=== PATIENT | male | born 1935 | race Caucasian/White ===

== ENCOUNTER → 2016-04-16 | Outpatient (CLI) | payer MEDICARE, BC | END | disposition home or self-care (01) | LOC: PCVCIMAG 12:47 | PROVIDERS: ATTEND Internal Medicine Cardiovascular Disease | DX: E78.5 Hyperlipidemia, unspecified (principal); I25.10 Atherosclerotic heart disease of native coronary artery without angina pectoris; I10 Essential (primary) hypertension; I35.0 Nonrheumatic aortic (valve) stenosis; I65.29 Occlusion and stenosis of unspecified carotid artery; Z95.1 Presence of aortocoronary bypass graft | CPT/HCPCS: 80061; 93005; 93306; G0463 ==

== ENCOUNTER → 2016-10-01 | Outpatient (CLI) | payer MEDICARE, BC ==
--- NOTE | 2016-10-01 15:41 | PCVCIMAG ---
APPROVED REPORT Exam: Stress Echocardiogram Indication: CAD s/p CABG, Aortic Valve Stenosis Stress Nurse: Faye Vela RN Status: routine HR: 65 bpm Rhythm: NSR Medical History Medical History: CAD s/p CABG, Aortic Stenosis Procedure The patient underwent an Exercise Stress Test using the Mckay Protocol. Blood pressure, heart rate, and EKG were monitored. An Echocardiogram was performed by auto body technician in four stages in quad fashion. At peak stress, four selected images were obtained and placed side by side with resting images for comparison. Stress Test Details Stress Test: Exercise stress testing was performed using a Mckay protocol. HR Resting HR: 65 bpmMax Heart Rate (APMHR): 139 bpm Max HR Achieved: 108 bpmTarget HR (85% APMHR): 118 bpm % of APMHR: 77 Recovery HR: 76 bpm HR response to stress: Normal HR response to stress BP Resting BP: 118/60 mmHg Max BP: 148/76 mmHg Recovery BP: 136/62 mmHg ECG Resting ECG: Sinus Rhythm w/ frequent PVCs Stress ECG: Sinus Rhythm w/ frequent PVCs ST Change: Normal Arrhythmia: Sinus Rhythm w/ frequent PVCs Recovery ECG: Sinus Rhythm w/ frequent PVCs Recovery Arrhythmia: Sinus Rhythm w/ frequent PVCs Clinical Reason for Termination: Maximal effort Stress Symptoms: none Exercise duration: 9 min 13 sec Highest Stage Achieved: Stage 4: 4.2 mph at 16% grade. Exercise capacity: 10.7 METs Overall Exercise Capacity for Age: Good Pre-Stress Echo The resting Echocardiogram showed normal left ventricular contractility with an estimated Ejection Fraction of about >55%. Normal wall motion in all segments on baseline images. Post-Stress Echo The stress Echocardiogram showed normal left ventricular contractility with an estimated Ejection Fraction of about 60-65%. Normal augmentation of wall motion in all segments on post stress images. Clinical No clinical or ECG evidence for ischemia. Conclusion Clinical Response: Non-ischemic Exercise Capacity: Average Stress ECG Response: Non-ischemic Stress Echo Images: Non-ischemic Moderate-severe aortic stenosis- GIANNA 0.9 cm2, Mean gradient 33 mmHg and peak velocity 3.8 m/s. Aortic stenosis has not worsened. Heart rate was slightly submaximal (77%)- somewhat diminished accuracy due to inability to reach target heart rate. Other Information Study Quality: Adequate <Conclusion> Moderate-severe aortic stenosis- GIANNA 0.9 cm2, Mean gradient 33 mmHg and peak velocity 3.8 m/s. Aortic stenosis has not worsened. Heart rate was slightly submaximal (77%)- somewhat diminished accuracy due to inability to reach target heart rate.
== END | disposition home or self-care (01) ==
LOC: PCVCIMAG 10:57
PROVIDERS: ATTEND Internal Medicine Cardiovascular Disease
DX: I35.0 Nonrheumatic aortic (valve) stenosis (principal); I49.3 Ventricular premature depolarization; I25.10 Atherosclerotic heart disease of native coronary artery without angina pectoris; I10 Essential (primary) hypertension; Z95.1 Presence of aortocoronary bypass graft
CPT/HCPCS: 93325; 93351

== ENCOUNTER → 2017-06-10 | Outpatient (CLI) | payer MEDICARE, BC | END | disposition home or self-care (01) | LOC: PCVCCLINIC 10:10 | DX: I25.10 Atherosclerotic heart disease of native coronary artery without angina pectoris (principal); I10 Essential (primary) hypertension; I35.0 Nonrheumatic aortic (valve) stenosis; E78.2 Mixed hyperlipidemia; I77.9 Disorder of arteries and arterioles, unspecified; R68.84 Jaw pain; R94.31 Abnormal electrocardiogram [ECG] [EKG]; Z95.1 Presence of aortocoronary bypass graft; Z87.891 Personal history of nicotine dependence; Z79.899 Other long term (current) drug therapy; Z79.82 Long term (current) use of aspirin | CPT/HCPCS: 80061; 93005; G0463 ==

== ENCOUNTER → 2017-07-02 | Outpatient (CLI) | payer MEDICARE, BC ==
[~2017-07-02] MED LIST: BENZOCAINE ONE 20% MUCOSAL SPRAY.; IOHEXOL 350 MG/ML 50 ML VIAL.; IV NORMAL SALINE 1000ML BAG 1,000 ML; LIDOCAINE 1% Multi-Dose 20 ML VIAL.; MIDAZOLAM HCL/PF 2 MG/2 ML VIAL.; NALOXONE 0.4 MG/ML VIAL.; fentaNYL PF VIAL 100 MCG/2 ML VIAL
== END | disposition home or self-care (01) ==
LOC: PCVCINTER 07:21
DX: I25.10 Atherosclerotic heart disease of native coronary artery without angina pectoris (principal); I70.0 Atherosclerosis of aorta; Z95.1 Presence of aortocoronary bypass graft; Z98.890 Other specified postprocedural states; I08.0 Rheumatic disorders of both mitral and aortic valves
CPT/HCPCS: 75625; 93312; 93325; 93351; 93461; 93567; 99152; 99153; C1751; C1760; C1769; C1894; J1644; J2250; J2310; J3010; J7030; Q9967

== ENCOUNTER → 2017-08-29 | Outpatient (CLI) | payer MEDICARE, BC | END | disposition home or self-care (01) | LOC: PCVCCLINIC 14:30 | DX: I25.10 Atherosclerotic heart disease of native coronary artery without angina pectoris (principal); I10 Essential (primary) hypertension; I77.9 Disorder of arteries and arterioles, unspecified; I35.0 Nonrheumatic aortic (valve) stenosis; Z95.1 Presence of aortocoronary bypass graft | CPT/HCPCS: 93005; G0463 ==

== ENCOUNTER → 2017-12-24 | Outpatient (CLI) | payer MEDICARE, BC | END | disposition home or self-care (01) | LOC: PCVCCLINIC 15:31 | PROVIDERS: ATTEND Internal Medicine Cardiovascular Disease | DX: I25.810 Atherosclerosis of coronary artery bypass graft(s) without angina pectoris (principal); I10 Essential (primary) hypertension; I35.0 Nonrheumatic aortic (valve) stenosis; E78.00 Pure hypercholesterolemia, unspecified; Z79.82 Long term (current) use of aspirin; Z87.891 Personal history of nicotine dependence | CPT/HCPCS: 80061; 93005; G0463 ==

== ENCOUNTER → 2018-06-23 | Outpatient (CLI) | payer MEDICARE, BC ==
--- NOTE | 2018-06-23 13:34 | PCVCIMAG ---
APPROVED REPORT Study performed: 06/23/2018 09:51:42 Exam: Stress Echocardiogram Indication: CAD s/p PCI, severe aortic stenosis, htn, hx cabg, jaw pain Patient Location: Echo lab Stress Nurse: Aidee Baez RN Status: routine Ht: 5 ft 7 in HR: 74 bpm BP: 136/70 mmHg Rhythm: NSR Procedure The patient underwent an Exercise Stress Test using the Mckay Protocol. Blood pressure, heart rate, and EKG were monitored. An Echocardiogram was performed by composite technician in four stages in quad fashion. At peak stress, four selected images were obtained and placed side by side with resting images for comparison. Stress Test Details Stress Test: Exercise stress testing was performed using a Mckay protocol. HR Resting HR: 74 bpmMax Heart Rate (APMHR): 137 bpm Max HR Achieved: 114 bpmTarget HR (85% APMHR): 116 bpm % of APMHR: 83 Recovery HR: 90 bpm HR response to stress: Normal HR response to stress BP Resting BP: 136/70 mmHg Max BP: 140/70 mmHg Recovery BP: 120/70 mmHg BP response to stress: Abnormal hypotensive response to stress. ECG Resting ECG: Sinus Rhythm Stress ECG: Sinus Rhythm ST Change: Ischemic ST depression inferior and lateral Maximum ST Deviation: 3.5 mm Arrhythmia: frequent isolated and couplet PVCs Recovery ECG: Sinus Rhythm Recovery ST Change: Ischemic ST depression and T wave abnormality inferior and lateral leads Recovery ST Deviation: 2.5 mm Recovery Arrhythmia: frequent PVCs Clinical Reason for Termination: Systolic blood pressure drop, dyspnea Stress Symptoms: jaw pain in recovery that resolved with nitro tablet Exercise duration: 7 min 53 sec Highest Stage Achieved: Stage 3: 3.4 mph at 14% grade. Exercise capacity: 10.1 METs Overall Exercise Capacity for Age: Normal Scale: Active Angina Score: Exercise-Limiting Stress ECG Conclusion Manuel Treadmill Score is -18.5 which is High risk. Pre-Stress Echo The resting Echocardiogram showed normal left ventricular contractility with an estimated Ejection Fraction of about >55%. Normal wall motion in all segments on baseline images. Post-Stress Echo The stress Echocardiogram showed abnormal left ventricular contractility with an estimated Ejection Fraction of about 55%. Regional wall motion- Lateral and inferolateral hypokinesis post exertion. Clinical Clinical and ECG evidence for ischemia. Conclusion Clinical Response: Ischemic- jaw pain Exercise Capacity: Average Stress ECG Response: Ischemic Stress Echo Images: Ischemic The left ventricle is normal in size and wall thickness in both the rest and stress images. Ischemic stress echocardiogram. Severe aortic stenosis present with GIANNA of 0.9 cm2, mean gradient 42 mmHg, peak gradient 68 mmHg. Mild AI, MR. Other Information Study Quality: Adequate <Conclusion> The left ventricle is normal in size and wall thickness in both the rest and stress images. Ischemic stress echocardiogram. Severe aortic stenosis present with GIANNA of 0.9 cm2, mean gradient 42 mmHg, peak gradient 68 mmHg. Mild AI, MR.
== END | disposition home or self-care (01) ==
LOC: PCVCIMAG 10:11
PROVIDERS: ATTEND Internal Medicine Cardiovascular Disease
DX: I25.10 Atherosclerotic heart disease of native coronary artery without angina pectoris (principal); I10 Essential (primary) hypertension; R07.9 Chest pain, unspecified; I35.0 Nonrheumatic aortic (valve) stenosis; R68.84 Jaw pain; E78.2 Mixed hyperlipidemia; K21.9 Gastro-esophageal reflux disease without esophagitis; Z95.1 Presence of aortocoronary bypass graft; Z87.891 Personal history of nicotine dependence
CPT/HCPCS: 93325; 93351; G0463

== ENCOUNTER → 2018-07-23 | Outpatient (CLI) | payer MEDICARE, BC | END | disposition home or self-care (01) | LOC: PCVCCLINIC 15:00 | PROVIDERS: ATTEND Internal Medicine Cardiovascular Disease | DX: I25.10 Atherosclerotic heart disease of native coronary artery without angina pectoris (principal); I35.0 Nonrheumatic aortic (valve) stenosis; I10 Essential (primary) hypertension; E78.00 Pure hypercholesterolemia, unspecified; E78.5 Hyperlipidemia, unspecified; K21.9 Gastro-esophageal reflux disease without esophagitis | CPT/HCPCS: 36415; 80061; 93005; G0463 ==

== ENCOUNTER → 2019-03-19 | Outpatient (CLI) | payer MEDICARE, BC ==
--- NOTE | 2019-03-19 15:54 | PCVCIMAG ---
APPROVED REPORT Study performed: 03/19/2019 08:46:46 EXAM: Comprehensive 2D, Doppler, and color-flow Echocardiogram Patient Location: Echo lab Room #: [id number]: routine BSA: 1.84 HR: 62 bpmBP: 122/60 mmHg Rhythm: NSR Other Information Study Quality: Adequate Risk Factors: Cardiac Risk Factors: HTN, Hyperlipidemia Indications Aortic Valve Disease CAD Hx CABG 1997 2D Dimensions IVSd: 12.76 (7-11mm)LVOT Diam: 20.00 (18-24mm) LVDd: 37.21 mm PWd: 14.00 (7-11mm)Ascending Ao: 28.60 (22-36mm) LVDs: 22.63 (25-40mm) Left Atrium: 32.36 (27-40mm) Aortic Root: 29.69 mm LV Single Plane 4CH: 56.95 % LV Single Plane 2CH: 53.90 % Biplane EF: 56.3 % Volumes Left Atrial Volume (Systole) Single Plane 4CH: 52.16 mLSingle Plane 2CH: 55.06 mL LA ESV Index: 32.00 mL/m2 Aortic Valve AoV Peak Clarke.: 4.06 m/s AO Peak Gr.: 65.89 mmHgLVOT Max P.35 mmHg AO Mean Gr.: 41.54 mmHgLVOT Mean P.25 mmHg AO V2 Mean: 3.14 m/sLVOT Max V: 1.04 m/s AO V2 VTI: 99.91 cmLVOT Mean V: 0.71 m/s GIANNA (VTI): 0.79 ul2SHPP V1 VTI: 26.42 cm GIANNA Vmax: 0.77 cm2 AI Vmax: 3.84 m/sSV (LVOT): 79.17 mL AI Charles: 2.05 m/s2 AI PHT: 549.34 ms Mitral Valve E/A Ratio: 0.8 MV Decel. Time: 230.14 ms MV E Max Clarke.: 0.84 m/s MV A Clarke.: 1.01 m/s IVRT: 76.12 ms TDI E/Lateral E': 16.80E/Medial E': 16.80 Medial E' Clarke.: 0.05 m/s Lateral E' Clarke.: 0.05 m/s Pulmonary Valve PV Peak Clarke.: 1.62 m/sPV Peak Gr.: 10.52 mmHg Pulmonary Vein P Vein S: 0.42 m/sP Vein A: 0.20 m/s P Vein D: 0.48 m/sP Vein A Dur.: 93.4 msec P Vein S/D Ratio: 0.88 Tricuspid Valve RAP Estimate: 7.00 mmHg Left Ventricle The left ventricle is normal size. There is normal LV segmental wall motion. Mild concentric left ventricular hypertrophy. Left ventricular systolic function is normal. The left ventricular ejection fraction is within the normal range. LVEF is 60%. Mild diastolic dysfunction is present (impaired relaxation pattern). Right Ventricle The right ventricle is normal size. The right ventricular systolic function is normal. Atria The left atrium size is normal. The right atrium size is normal. Aortic Valve Aortic valve is heavily calcified. Mild to moderate aortic regurgitation. The maximum aortic valve pressure gradient is 66 mmHg and the mean pressure gradient is 42 mmHg. The calculated aortic valve area is 0.8 cm2. Severe aortic stenosis. Mitral Valve The mitral valve is normal in structure. Mild mitral regurgitation. No evidence of mitral valve stenosis. Tricuspid Valve The tricuspid valve is normal in structure. There is no tricuspid valve regurgitation noted. Pulmonic Valve The pulmonary valve is normal in structure. There is no pulmonic valvular regurgitation. Great Vessels The aortic root is normal in size. The ascending aorta is normal in size. IVC is normal in size and collapses >50% with inspiration. Pericardium There is no pericardial effusion. <Conclusion> The left ventricle is normal size. Mild concentric left ventricular hypertrophy. LVEF is 60%. Mild diastolic dysfunction is present (impaired relaxation pattern). The right ventricle is normal size. The left atrium size is normal. The maximum aortic valve pressure gradient is 66 mmHg and the mean pressure gradient is 42 mmHg. The calculated aortic valve area is 0.8 cm2. Severe aortic stenosis. Mild mitral regurgitation. There is no tricuspid valve regurgitation noted. The aortic root is normal in size. There is no pericardial effusion.
== END | disposition home or self-care (01) ==
LOC: PCVCIMAG 08:46
PROVIDERS: ATTEND Internal Medicine Cardiovascular Disease
DX: I08.0 Rheumatic disorders of both mitral and aortic valves (principal); I11.9 Hypertensive heart disease without heart failure; I25.10 Atherosclerotic heart disease of native coronary artery without angina pectoris; Z95.1 Presence of aortocoronary bypass graft; Z87.891 Personal history of nicotine dependence
CPT/HCPCS: 93306